=== PATIENT | male | born 1935 | race Caucasian/White ===

== ENCOUNTER 2017-03-09 11:55 | Inpatient (IN) | payer MEDICARE, BC ==
--- NOTE | 2017-03-09 13:20 | RAD ---
LEFT FOOT 3 VIEWS: Date: 03/09/17 HISTORY: Left foot pain. FINDINGS: There is abnormal gas density seen in the soft tissues adjacent to the first MTP joint and extending into the great toe. The soft tissue gas is noted along the dorsal surface on the lateral view. Ther e is abnormal mottled appearance to the distal phalanx of the great toe. There is also mild mottled appearance involving the proximal phalanx of the great toe and the first metatarsal. IMPRESSION: There is soft tissue swelling with gas density seen in the soft tissues surrounding the first MTP naveen int dorsally and extending into the great toe. Infection with gas-forming organism should be exclude d. Mottled osseous appearance could represent osteomyelitis, although no focal lytic or destructive process is seen. Consider MRI to further evaluate. Findings discussed with ordering physician. CODE CR. POS: JANEY
[2017-03-09 13:21] LABS: Hematocrit 38.4 % (42.0-52.0); Mean Platelet Volume 7.7 fL (7.4-10.4); Red Blood Cell (RBC) Count 5.04 mill/uL (4.70-6.10); White Blood Cell (WBC) Count 19.6 thou/uL (4.8-10.8)
--- NOTE | 2017-03-09 13:35 | ULT ---
LEFT LOWER EXTREMITY VENOUS DUPLEX STUDY: Technique: Deep veins of left lower extremity evaluated by ultrasound and doppler with color doppler , spectral analysis and compression. History: Pain and edema left foot with bleeding and eurythemia of the great toe. FINDINGS: Common femoral, profunda femoral, superficial femoral, popliteal, greater saphenous, and posterior t ibial veins evaluated. There is normal compression, augmentation and blood flow. No evidence of DVT. IMPRESSION: No evidence of left lower extremity DVT. POS: JANEY
[2017-03-09 13:38] LABS: Anisocytosis SLIGHT = 6-15 cells (100X) (0-5/hpf); Band 4 % (5-11); Hypochromia SLIGHT = 6-15 cells (100X) (0-5/hpf); Microcytosis SLIGHT = 6-15 cells (100X) (0-5/hpf); Neutrophil 87 % (42-75); Ovalocytes SLIGHT = 2-5 cells (100X) (0-1/hpf); Polychromasia SLIGHT = 2-3 cells (100X) (0-2/hpf); Target Cells SLIGHT = 2-5 cells (100X) (0-1/hpf)
[2017-03-09 13:42] LABS: ALT (SGPT) 14 U/L (8-55); AST (SGOT) 11 U/L (5-34); Alkaline Phosphatase 122 U/L (40-150); Anion Gap 16 mmol/L (10-20); BUN (Urea Nitrogen) 40 mg/dL (8.4-25.7); Bilirubin, Total 0.8 mg/dL (0.2-1.2); CK (CPK) 27 U/L (30-200); Calc. Creatinine Clearance 0 mL/min (70-130); Calcium 9.2 mg/dL (7.8-10.44); Carbon Dioxide 28 mmol/L (23-31); Chloride 94 mmol/L (98-107); Estimated GFR-MDRD 42; Globulin 3.9 g/dL (2.4-3.5); Protein, Total 7.4 g/dL (5.8-8.1)
[2017-03-09] MEDS ORDERED: Ondansetron HCl/PF 4 MG/2 ML Vial IVP PRN ×2 (14:41→20:09)
[2017-03-09] MEDS ORDERED: Ondansetron ODT 4 MG TAB PO PRN (14:41)
[2017-03-09] MEDS ORDERED: Acetaminophen 325 MG TAB PO PRN (14:42)
[2017-03-09] MEDS ORDERED: HYDROcodone/Acetaminophen 5/325 mg Tablet PO PRN ×2 (14:42)
[2017-03-09 14:51] VITALS: BMI 22.8
[2017-03-09] MEDS ORDERED: Insulin Regular 300 UNITS/3 ML VIAL SC PRN (17:58)
[2017-03-09] MEDS ORDERED: Dextrose 50% Abboject 50 ML SYRINGE SLOW IVP PRN (17:58)
[2017-03-09] MEDS ORDERED: Dextrose 5% in Water 1,000 ML IV PRN (17:58)
[2017-03-09] MEDS ORDERED: Insulin Regular 300 UNITS/3 ML VIAL ONE ×2 (18:55→18:57)
[2017-03-09] MEDS ORDERED: Bupivacaine PF 0.5% 30 ML VIAL ONE (18:58)
[2017-03-09] MEDS ORDERED: Propofol 500 MG/50 ML VIAL ONE (19:12)
[2017-03-09] MEDS ORDERED: Fentanyl 100 MCG/2 ML VIAL ONE (19:12)
[2017-03-09] MEDS ORDERED: Lidocaine 1% PF 5 ML VIAL ONE (19:32)
[2017-03-09] MEDS ORDERED: Propofol 200 MG/20 ML VIAL ONE (19:32)
[2017-03-09] MEDS ORDERED: HYDROmorphone 2 MG/ML VIAL SLOW IVP PRN (20:09)
[2017-03-09] MEDS ORDERED: Promethazine HCl 25 MG/ML VIAL IM PRN (20:09)
[2017-03-09] MEDS ORDERED: Promethazine HCl 25 MG/ML VIAL SLOW IVP PRN (20:09)
[2017-03-09] MEDS ORDERED: Non-Formulary Item 1 EACH (Insulin Glargine,Hum.Rec.Anlog 10 UNIT) SQ SCH (21:00)
[2017-03-09] MEDS: Piperacillin/Tazobactam 3.375 GM in Sodium Chloride 0.9% 100 ML IVPB SCH (21:39)
[2017-03-09] MEDS: Simvastatin 20 MG TAB PO SCH (21:40)
[2017-03-09] MEDS: Sotalol HCl 80 MG TAB PO SCH (21:41)
[2017-03-09] MEDS: Insulin Detemir 100 UNITS/ML 10 UNITS in Pre-Filled Syringe SC SCH (21:45)
[2017-03-09] MEDS: Sodium Chloride 0.9% 1,000 ML IV SCH (21:49)
[2017-03-09] MEDS: Albuterol Sulfate 1.25 MG/3 ML NEB NEB SCH (23:05)
[2017-03-10] MEDS ORDERED: Iopamidol 370 76% 50 ML VIAL FS ONE ×2 (00:54→16:52)
--- NOTE | 2017-03-10 00:55 | CON ---
DATE OF CONSULTATION: 03/09/2017 REASON FOR CONSULTATION: Gangrene and sepsis, left foot. HISTORY OF PRESENT ILLNESS: Mr. Lopez is a 81-year-old man who presented to his primary care doctor last week with left foot swelling. He has a previous history of an osteoporotic fracture on that side, but an x-ray was negative for fracture. He had a uric acid level that was mildly elevated, so he was started on some steroids with the thought that this could be a gouty foot; however, he was not better by the weekend, so he was started on colchicine. He called his primary care doctor this morning and stated that when he woke up, his left great toe was black in color and the top of his foot looked bruised, so he was told to come into the emergency room. In the emergency room, white count was elevated at 19,000 and a CRP was elevated at 8. He had an x-ray of the left foot, which revealed gas in the soft tissues around the first metatarsal as well as soft tissue swelling. The patient is having some pain in his foot, but this is not severe and he denies any fevers or chills at home. He denies any open wounds or injury or drainage from the foot. PAST MEDICAL HISTORY: Coronary artery disease, status post MN and PTCA and stenting; peripheral vascular disease, status post PTCA on the left leg several years ago by Dr. Jose Montenegro; oxygen dependent COPD with ongoing tobacco abuse ; hypertension; diabetes, non insulin-dependent; depression and intermittent atrial fibrillation. PAST SURGICAL HISTORY: PTCA and stenting of the coronary arteries and PTCA of the left superficial femoral artery, laparoscopic cholecystectomy and appendectomy. ALLERGIES: He has no known drug allergies. OUTPATIENT MEDICATIONS: Include Eliquis, which he has been taking, levocetirizine, Zoloft, albuterol and Symbicort inhalers, aspirin, Lasix, multivitamin, Lyrica, Forteo injection, Dosepak of prednisone, glargine insulin , Protonix, simvastatin, sotalol and glipizide. He did receive a dose of vancomycin in the emergency room and his primary care doctor has ordered Zosyn. REVIEW OF SYSTEMS: Ten-system review of systems is negative except per HPI. FAMILY HISTORY: Stroke, diabetes and lung cancer. PHYSICAL EXAMINATION: VITAL SIGNS: Patient is afebrile, heart rate in the 50s, respirations 16, 93% saturated on 2 liters of oxygen, blood pressure 136/67. GENERAL: Reveals an elderly man, in no acute distress with oxygen in place. He is not flushed or toxic in appearance. He is not jaundiced or icteric. HEENT: Unremarkable. NECK: Supple, without lymphadenopathy or thyroid nodules. HEART: Regular in its rate and rhythm. I do not appreciate any murmurs, rubs, or gallops. LUNGS: Mostly clear with occasional wheezes. ABDOMEN: Soft, nontender, nondistended, without any palpable masses or hernias. EXTREMITIES: His right foot is warm to the touch and has good cap refill, although I do not appreciate any pedal pulses. His left foot is moderately swollen to the ankle, has discoloration of the dorsum of the foot and a blister with some gas under the blister. His left great toe has a gangrenous appearance. There is not any arnulfo crepitance and no expressible drainage. He has no palpable pedal or popliteal pulses and he has dependent rubor when sitting at the bedside. NEUROLOGIC: Diminished sensation in both feet. PSYCHIATRIC: Alert, oriented, and appropriate. LABORATORY DATA: White count is elevated at 19.6, hematocrit 38.4, platelets 157. Sodium is slightly low at 134, BUN and creatinine are mildly elevated at 40 and 1.6, glucose is 382. C-reactive protein is 8.1. Plain films of the left foot are reviewed and I agree with the written report. A venous duplex was also performed and there was no evidence of DVT. ASSESSMENT AND PLAN: Gangrene and sepsis with possible gas forming organism on foot x-ray and rapidly progressive gangrenous changes of the left foot. The patient has been taking his Eliquis, but I do not believe that surgical intervention can be delayed. He has moderately increased risk of bleeding for this reason; however, he has evidence of severe peripheral vascular disease on physical examination. I do not expect bleeding to be a huge problem. He will have difficulty healing unless we can improve the blood flow and Vascular Surgery is going to see him tomorrow; however, there is nothing that they need to do urgently. I have recommended a left great toe amputation to try to control his infection. If the infection extends further up the foot then amputation of additional toes or even the entire foot may be necessary to halt the progression of the infection. He is at increased risk for bleeding as well as failure to heal and anesthetic risks due to his multiple comorbidities. He and his understand and accept these risks and wish to proceed. He has been posted emergently for the operating room. All their questions were answered. JANIYA
[2017-03-10] MEDS: Piperacillin/Tazobactam 3.375 GM in Sodium Chloride 0.9% 100 ML IVPB SCH ×4 (01:41→20:09)
[2017-03-10] MEDS: Sodium Chloride 0.9% 1,000 ML IV SCH ×4 (03:13→20:13)
[2017-03-10 05:03] LABS: #Lymphocytes 1.6 thou/uL (1.20-3.40); #Monocytes 0.8 thou/uL (0.11-0.59); %Eosinophils 0.3 % (0.0-10.0); %Monocytes 6.3 % (0.0-10.0); Hematocrit 34.8 % (42.0-52.0); Mean Platelet Volume 11.9 fL (7.4-10.4); Red Blood Cell (RBC) Count 4.53 mill/uL (4.70-6.10); White Blood Cell (WBC) Count 12.4 thou/uL (4.8-10.8)
[2017-03-10 05:21] LABS: Anion Gap 11 mmol/L (10-20); BUN (Urea Nitrogen) 33 mg/dL (8.4-25.7); Calc. Creatinine Clearance 49 mL/min (70-130); Calcium 8.4 mg/dL (7.8-10.44); Carbon Dioxide 29 mmol/L (23-31); Chloride 98 mmol/L (98-107); Estimated GFR-MDRD 60
[2017-03-10] MEDS: Albuterol Sulfate 1.25 MG/3 ML NEB NEB SCH ×3 (06:17→22:27)
--- NOTE | 2017-03-10 06:54 | CON ---
DATE OF CONSULTATION: 03/10/2017 HISTORY OF PRESENT ILLNESS: Mr. Lopez is a 81-year-old gentleman who is status post FLAVORER and stent ing of his left superficial femoral artery for a chronic total occlusion 3 years ago. He is back in the hospital today with left first and second toe gangrene, which has been amputated by Dr. Magaña . I have been asked to see him to further evaluate his peripheral vascular status. He has had no c laudication at home. He has not had any fevers or chills at home. He has had no previous ulceratio ns or rest pain. PAST MEDICAL HISTORY: 1. Coronary artery disease. 2. Peripheral vascular disease. 3. Oxygen dependent chronic obstructive pulmonary disease with ongoing tobacco use. 4. Hypertension. 5. Diabetes. 6. Depression. 7. Paroxysmal atrial fibrillation. PAST SURGICAL HISTORY: 1. Appendectomy. 2. Laparoscopic cholecystectomy. 3. SFA intervention on the left - the SFA was angioplastied with a 4 x 150 balloon followed by a 6 x 100 stent. ALLERGIES: None. MEDICATIONS AT HOME 1. Eliquis. 2. Zoloft. 3. Albuterol and Symbicort inhalers. 4. Aspirin. 5. Lasix. 6. Lyrica. 7. Forteo. 8. Prednisone Dosepak. 9. Insulin. 10. Protonix. 11. Simvastatin. 12. Sotalol. 12. Glipizide. REVIEW OF SYSTEMS: Ten point review of systems performed and is negative except as above. PHYSICAL EXAMINATION: GENERAL: This is an elderly, thin gentleman resting comfortably in bed. VITAL SIGNS: Temperature is 98.1, pulse is 60 and regular, blood pressure 109/64, height is 5 feet 8 inches, weight 150 pounds, BSA is 1.81. HEENT: Sclerae nonicteric. Pupils equal, round bilaterally. NECK: Supple. He has no carotid bruits. LUNGS: Chest is clear bilaterally. HEART: Rhythm is regular. ABDOMEN: Soft, nontender. Scaphoid. There are no masses. EXTREMITIES: Femoral pulses are palpable bilaterally. He has Doppler signals only in dorsalis pedi s bilaterally. He is status post amputation and his left foot is completely wrapped. LABORATORY DATA: White blood cell count is 12.4, hemoglobin is 10.2, creatinine is 1.1. ASSESSMENT AND PLAN: A 81-year-old diabetic gentleman who continues to use tobacco who is status po st intervention of his left superficial femoral artery. He has lost toes due to gangrene and needs a reevaluation with angiography today. The risks have been outlined. The patient is agreeable.
[2017-03-10] MEDS: glipiZIDE 5 MG TAB PO SCH ×2 (07:09→17:44)
[2017-03-10] MEDS: Enoxaparin Sodium 40 MG/0.4 ML SYRINGE SC SCH (07:10)
--- NOTE | 2017-03-10 08:39 | HP ---
DATE OF ADMISSION: 03/09/2017 HISTORY OF PRESENT ILLNESS: The patient is a 81-year-old white male who has a known history of COPD , peripheral vascular disease, type 2 diabetes mellitus [id number], history of atheroscl erotic coronary artery disease and atrial fibrillation. He presented to the the emergency room comp laining of blackness to his left great toe and pain in his left foot. He noticed the symptoms began approximately 5 days ago. He was seen in my office at that time complaining of left ankle swelling . He has a prevous history of fracture to his left ankle and osteoporosis. An ankle x-ray was done which showed no fracture. foot lesion at that time. was 11.7. It was elected to treat him with prednisone. He continues to have swelling and pain. He notified my office again on . He was switched to colchicine for possible gout. Today he notified my office and was told to go to the emergency room for further evaluation and treatment. He has not noted any fever. No injuri es have been noted. He does have a past history of peripheral vascular disease. He has undergone a stenting procedure to his left lower done by Dr. Jose Montenegro. He denies any chest pain. He has chronic shortness of breath with his COPD. He continues to smoke. . ALLERGIES: He has no known allergies. CURRENT MEDICATIONS: Noted in the chart. PAST MEDICAL HISTORY: Positive for hypertension, atherosclerotic coronary artery disease, type 2 di abetes mellitus [id number], COPD, atrial fibrillation, previous history of prostate cance r, and radiation therapy. PAST SURGICAL HISTORY: Positive for multiple orthopedic surgeries. He has undergone previous coron ryland artery stent as well as peripheral vascular stent. SOCIAL AND PERSONAL HISTORY: He is retired. He does smoke. He has smoked his entire adult life. REVIEW OF SYSTEMS: Gastrointestinal: Negative. Genitourinary: Negative. Cardiovascular: Negati ve. : Negative. Musculoskeletal: Positive as above. FAMILY HISTORY: Noncontributory at this time. PHYSICAL EXAMINATION: VITAL SIGNS: Blood pressure 141/84, pulse 88, respirations 16, O2 sats 92% on 2 liters. GENERAL: He is alert. He does not appear in any significant distress. HEENT: Normocephalic, atraumatic. Sclerae and conjunctivae are clear. NECK: Supple, full range of motion, no masses. HEART: Reveals a regular rate and rhythm without murmurs, gallops, or rubs. LUNGS: Bilateral breath sounds, mild inspiratory wheezes otherwise noted. ABDOMEN: Soft, nontender, bowel sounds are active. No hepatosplenomegaly is noted. EXTREMITIES: The left great toe is obviously gangrenous down to the whole aspect of the toe a t the metarsophalangeal joint. There are areas of discoloration blackness to the dorsal aspec t of the foot. There is poor capillary filling. No pulses are palpable in dorsalis pedis. The low er extremity does not reveal any other lesions to the lower leg. Popliteal pulses could not be norma ured. The right lower extremity actually show good capillary filling. Pulses are ____ palpable on both dorsalis pedis and the posterior tibial. NEUROLOGIC: Alert and oriented x3. IMPRESSION/PLAN: 1. This is a 81-year-old male with gangrenous left toe consistent with possible infection. With th e infectious etiology and peripheral vascular disease, I have consulted Dr. Magaña and she has agre ed to see the patient. It appears she will take the patient to surgery for amputation of the toe. I have consulted Dr. Davis for further antibiotic recommendations. We will get those recommendation s. He has already had one dose of vancomycin, started him on Zosyn 3.75 mg IV q. 6 hours. 2. I discussed the findings with the patient and his . They verbalized understanding of the pr ocess and what needs to be accomplished. 2. We will contact Dr. Jose Montenegro and target a recommendation regarding revascularization of his left lower extremity.
[2017-03-10] MEDS: Morphine Sulfate 2 MG/ML SYRINGE IVP PRN ×3 (08:52→20:10)
[2017-03-10] MEDS: Sotalol HCl 80 MG TAB PO SCH ×2 (09:04→20:09)
--- NOTE | 2017-03-10 09:26 | PRG ---
DATE OF SERVICE: 03/10/2017 Mr. Lopez is doing okay today. Dr. Montenegro has been around to see him and is going to do an angio l ater today. His wound is clean. There is no necrotic tissue in the base of the wound where the inf ected tissue was. He does have some skin of questionable viability along the lateral edge of the wo und, but no odor and no expressible drainage from any part of the wound. This was redressed with we t to dry dressings by Wound Care. Cultures are still pending, but Gram stain showed many gram posit raj cocci in pairs and clusters and a few gram negative rods from the past in his foot. His white c ount has come down from 19,000 to 12,000. BUN and creatinine are down to 33 and 1.18. ASSESSMENT: Deep infection of the left foot, status post amputation of first and second toes and de bridement of necrotic skin from the dorsum of the foot. He has severe peripheral vascular disease a nd will likely not be able to heal this wound without better inflow. He is getting an angio today, so hopefully this can be improved. Ultimately, he will require a VAC dressing and skin grafting. H e may require further debridement of skin and subcutaneous fat tomorrow. I will see him again with the Wound Care Team tomorrow.
[2017-03-10] MEDS ORDERED: Heparin 10,000 UNITS/1 ML VIAL ONE (10:30)
[2017-03-10] MEDS ORDERED: Fentanyl 100 MCG/2 ML VIAL ONE (10:30)
--- NOTE | 2017-03-10 12:31 | OP ---
DATE OF PROCEDURE: 03/10/2017 PREOPERATIVE DIAGNOSIS: Peripheral vascular disease with left foot gangrene. POSTOPERATIVE DIAGNOSIS: Peripheral vascular disease with left foot gangrene. SURGEON: Dr. Jose Montenegro PROCEDURES: 1. Abdominal aortogram. 2. Left external iliac artery angiogram. 3. Left common femoral artery angiogram. 4. Left proximal superficial femoral artery angiogram. 5. Left distal superficial femoral artery angiogram. 6. Left popliteal artery angiogram. 7. Left peroneal artery angiogram. 8. Left distal peroneal artery angiogram. 9. Left peroneal artery COMM[employer]ATION MANAGER with a 3 x 100 Pomfret balloon taken to 80 mmHg for 2 minutes on 2 sepa rate occasions. 10. Left superficial femoral/popliteal artery COMM[employer]ICATIONS STATION MANAGER for the full length with a 5 mm Lutonix -- this w as 3 separate balloons of 5 x 150, 5 x 150, 5 x 100 taken 6 mmHg for 3 minutes at each inflation. TOTAL CONTRAST: 82 mL. FLUORO TIME 10.4 minutes. PROCEDURE IN DETAIL: After consent was obtained, the patient was brought to the [facility], placed in supine position on the lab support service tech table. Appropriate monitoring was placed. The patient was given 7 5 mcg total of fentanyl. Using ultrasound guidance, the right groin was anesthetized with 1% lidoca ine over the common femoral artery. Using ultrasound guidance, the right common femoral artery was accessed and Bentson guidewire placed. A 5-Uzbek sheath was placed. Bentson guidewires placed in the upper abdominal aorta followed by contra catheter in the upper abdominal aorta. Hand injected a ortogram x2 was performed illuminating the aorta and proximal iliac arteries which had heavy calcifi cation, but no luminal encroachment. The contra catheter was guided over the aortic bifurcation int o the left external iliac artery. Hand injected arteriogram was performed illuminating the external iliac and common femoral arteries. Again, there was heavy calcification, but no intraluminal encro achment of significance. A Magic Torque guidewire was guided into the superficial femoral artery. A 5-Uzbek destination sheath was placed with its tip in the common femoral artery. Hand injected a rteriogram was performed in a stepwise fashion using digital subtraction angiography to illuminate t he superficial femoral, popliteal, and tibial arteries. Superficial femoral artery was heavily dise ased throughout its length. There was critical stenosis proximally. The stent was patent, but had stenosis throughout it. Popliteal artery was patent, but had stenoses throughout it. There was a c ritical stenosis in the proximal peroneal artery. Posterior tibial and anterior tibial arteries wer e occluded. The peroneal artery fed the foot. The patient was given 5000 units of heparin followed by 2500 units of heparin with an ACT of over 200. The tip of the sheath was then passed down into the superficial femoral artery distal to the proximal stenosis in the superficial femoral artery. M agic Torque guidewire was guided down into the peroneal artery. Hand injected arteriogram was perfo rmed through an angled glide catheter confirming intraluminal location. A 3 x 100 Pomfret balloon was selected for the proximal peroneal stenosis. This was inflated and he ld for 2 minutes. Hand injected arteriogram with the tip of the catheter in the popliteal artery sh owed an excellent result. We selected a 5 mm Lutonix system to angioplasty the full length of the s uperficial femoral and popliteal artery. We started just below the knee, angioplasties were held fo r 3 minutes with a Lutonix ballooned with a 150 mm balloon, a 150 mm balloon and a 100 mm balloon be ing used for the full length. Followup angiogram shows slow flow down into the distal superficial f emoral artery. Angled glide catheter was placed over the Magic Torque guidewire the Magic Torque gu idewire was removed. Hand injected arteriogram with the tip of the catheter in the peroneal showed excellent result from the angioplasty in the peroneal. An 0.014 guidewire was then placed. Hand in jection arteriograms sequentially pulling back showed a good result and slow flow being from probabl e spasm around the Magic Torque guidewire. The external iliac artery was again evaluated with an an gled view. There was no evidence of significant stenosis. The sheath was backed over the aortic bi furcation into the right iliac system. A Bentsen guidewire was placed. Sheath was removed and manu al pressure held. ProGlide was then placed, deployed and seated nicely for hemostasis. The patient tolerated the procedure well, and was transferred to the recovery area in stable condition.
--- NOTE | 2017-03-10 13:48 | PRG ---
DATE OF SERVICE: 03/10/2017 Mr. Lopez is doing well. He is status post amputation of his toe. He is pending to undergo arter iograms today for further treatment and evaluation of peripheral vascular disease. PHYSICAL EXAMINATION: VITAL SIGNS: Temperature 98.1, BP 150/76. LUNGS: Reveal bilateral breath sounds. HEART: Reveals no murmur. LABORATORY: Hemoglobin 10.2, hematocrit 34.8, white blood count 12.4. Sodium 134, potassium 3.6, c hloride 98, CO2 29, creatinine 1.18. IMPRESSION: 1. Status post amputation of gangrenous left toe. 2. Peripheral vascular disease. 3. Type 2 diabetes mellitus, non-insulin dependent. 4. Atrial fibrillation. 5. Chronic obstructive pulmonary disease. PLAN: Continue current treatment at this time, await results of arteriograms and further procedures to improve blood flow to his leg.
--- NOTE | 2017-03-10 15:37 | CON ---
DATE OF CONSULTATION: 03/10/2017 REASON FOR CONSULTATION: Left foot inflammatory and ischemic changes. HISTORY OF PRESENT ILLNESS: A 81-year-old patient with a history of hypertension and peripheral vas cular disease, type 2 diabetes mellitus, COPD, and still actively smoking, who has developed pain in the left foot and subsequently saw his personal doctor, Dr. Clarence Montenegro. The initial considerati on with the possibility of an inflammatory arthropathy, but then the patient developed overt areas o f ischemia in forefoot region as described below. This led to the admission. The patient currently is awake. He has O2 per nasal cannula. He denies headaches, no change in vis ual symptoms, sore throat, odynophagia, dysphagia, little bit of cough, mild dyspnea at rest. No ch est pain, no abdominal pain, no diarrhea, no genitourinary symptoms, no joint symptoms outside the a amber of involvement. PAST MEDICAL HISTORY: Hypertension, peripheral vascular disease, coronary artery disease, diabetes type 2, COPD, atrial fibrillation, prostate cancer managed with radiation therapy. PAST SURGICAL HISTORY: The patient has had revascularization of the left lower extremity with I bel ieve angioplasty. He also has had coronary angiograms and stenting procedures. PAST SURGICAL HISTORY: Includes also cholecystectomy and appendectomy. He also had a previous epis ode of pneumothorax, left side. SOCIAL HISTORY: Current active cigarette use. . ALLERGIES: None. CURRENT MEDICATION LIST: Include Glucotrol, Dilaudid, insulin, and Zosyn. PHYSICAL EXAMINATION: VITAL SIGNS: T-max of 98.5, blood pressure 150/76, pulse 61, respirations 18, and O2 sat 95% on 2 l iters nasal cannula. SKIN: Shows the area of necrosis of the left first toe extending to the dorsal aspect of the mid fo ot region with an area of blistering. There is some erythema associated with this lesion, but it is basically faint and localized right at the base of the digits. There is an unroofed blister in the medial dorsal aspect of the right proximal phalanx skin site as well. No lymphadenopathy. HEENT: Ocular movements are conjugate. Oral cavity with no remarkable findings. NECK: Supple, no jugular venous distention. LUNGS: With increased AP diameter, diminished breath sounds, no wheezing, no crackles. HEART: S1, S2 with irregular rate. ABDOMEN: Soft. Not distended. No bladder distention, no ascites, no organomegaly. I could not fe el any popliteal pulses or dorsalis pedis on either side. The cap refill was delayed in both sides. He is able to move extremities with limitations, but no focal weakness noted. NEUROLOGIC: He is awake, follows commands, oriented. LABORATORY DATA: White cell count 19.6, hemoglobin 11, platelets 157 with 87% neutrophils. Creatin ine 1.6 with a baseline of 1.02, repeat creatinine today is 1.18. CRP was 8.1. Liver profile barbara l. Microbiology studies, we have group B strep from fluid culture. Two sets of blood cultures thus far negative. ASSESSMENT: 1. Diabetes type 2 with peripheral vascular disease and recent previous revascularization of left l ower extremity. 2. Ischemic changes of the left foot with possible associated infectious process as well. DISCUSSION: The most likely scenario is thrombotic occlusion of the vascular supply to the left edgard t probably the tibial artery and superimposed inflammatory process. The patient is currently on bro ad spectrum coverage and will undergo vascular study soon to assess and correct the abnormality if p ossible. Eventual amputation will be required as well.
[2017-03-10] MEDS: Insulin Detemir 100 UNITS/ML 10 UNITS in Pre-Filled Syringe SC SCH (20:09)
[2017-03-10] MEDS: Simvastatin 20 MG TAB PO SCH (20:10)
[2017-03-11] MEDS: Morphine Sulfate 2 MG/ML SYRINGE IVP PRN ×5 (00:33→16:43)
[2017-03-11] MEDS: Piperacillin/Tazobactam 3.375 GM in Sodium Chloride 0.9% 100 ML IVPB SCH ×4 (02:20→19:58)
[2017-03-11 06:45] LABS: Anion Gap 14 mmol/L (10-20); BUN (Urea Nitrogen) 24 mg/dL (8.4-25.7); Calc. Creatinine Clearance 55 mL/min (70-130); Calcium 7.9 mg/dL (7.8-10.44); Carbon Dioxide 25 mmol/L (23-31); Chloride 105 mmol/L (98-107); Estimated GFR-MDRD 68
[2017-03-11] MEDS: Albuterol Sulfate 1.25 MG/3 ML NEB NEB SCH ×3 (06:48→22:22)
[2017-03-11 07:20] LABS: Hematocrit 34.8 % (42.0-52.0); Mean Platelet Volume 11.7 fL (7.4-10.4); White Blood Cell (WBC) Count 15.9 thou/uL (4.8-10.8)
[2017-03-11] MEDS ORDERED: Dextrose 5% in Water 1,000 ML IV PRN (07:42)
[2017-03-11] MEDS ORDERED: Dextrose 50% Abboject 50 ML SYRINGE SLOW IVP PRN (07:42)
--- NOTE | 2017-03-11 07:59 | PRG ---
DATE OF SERVICE: 03/11/2017 SUBJECTIVE: Mr. Lopez is resting well. He is alert and complaining of some left foot pain. PHYSICAL EXAMINATION: VITAL SIGNS: Temperature 98.6, BP 114/66, O2 sats 94% on 3 liters. GENERAL: He is alert, active, still somewhat drowsy. LUNGS: Clear. HEART: Reveals no murmur. EXTREMITIES: Left foot between the bandages I am able to feel warmth to his left foot. I did not r emove the bandage to check his wound today. LABORATORY: Hemoglobin 10.1, hematocrit 34.8, white blood count 15.9, creatinine is 1.05, his gluco ses are well controlled, matter of fact, somewhat to low. IMPRESSION: 1. Peripheral vascular disease. 2. Gangrene of left great toe, status post amputation. 3. Type 2 diabetes mellitus, insulin controlled. 4. Chronic obstructive pulmonary disease. 5. Atherosclerotic coronary artery disease. PLAN: The patient is doing well. He is on correct antibiotics due to wound cultures, strep agalact ia which reveals no evidence of any penicillin resistance. Further recommendations will be made by Surgery once it is known how current wounds will heal.
[2017-03-11] MEDS: Clopidogrel Bisulfate 75 MG TAB PO SCH (08:20)
[2017-03-11] MEDS: Aspirin 81 mg Enteric Coated Tablet PO SCH (08:20)
[2017-03-11] MEDS: Sotalol HCl 80 MG TAB PO SCH ×2 (08:21→19:59)
[2017-03-11] MEDS: Enoxaparin Sodium 40 MG/0.4 ML SYRINGE SC SCH (08:21)
[2017-03-11] MEDS: glipiZIDE 5 MG TAB PO SCH (08:23)
[2017-03-11] MEDS: Sodium Chloride 0.9% 1,000 ML IV SCH (08:35)
[2017-03-11 08:58] LABS: Band 6 % (5-11); Neutrophil 76 % (42-75)
--- NOTE | 2017-03-11 13:11 | PQF ---
DATE: 03/11/17 ATTN: Dr. Clarence Montenegro 03/15/17 Please exercise your independent, professional judgment in responding to the clarification form. Clinical indicators are provided on the bottom of this form for your review Please check appropriate box(s): [ ] Acute On Chronic Respiratory Failure: [ ] with Hypoxia [ ] with Hypercapnia [ ] Acute Respiratory Failure due to: (etiology) [ ] Chronic Respiratory Failure only [ ] with Hypoxia [ ] with Hypercapnia [ ] Other diagnosis [ ] Unable to determine For continuity of documentation, please document condition throughout progress notes and discharge summary. Thank You. The following CLINICAL INDICATORS - SIGNS / SYMPTOMS are present in the medical record: ER NURSING VS: O2 SAT RA 88 O2 SAT 93-95 2L OXYGEN PN 03/11: O2 SATS 94% ON 3 LITERS RISKS: GS CONSULT: OXYGEN DEPENDENT COPD WITH ONGOING TOBACCO ABUSE. ASSESS. GANGRENE AND SEPSIS. TREATMENT: CPOE 03/09: RESP: O2 TO KEEP SATS 88% CPOE 03/09: ALBUTEROL NEB Q8 HR (This form is maintained as a part of the permanent medical record) 2014 [employer] All Rights Reserved Corina Melgar RN, BSN [email or web address] Office: [phone] [facility]
--- NOTE | 2017-03-11 13:54 | PRG ---
DATE OF SERVICE: 03/11/2017 SUBJECTIVE: Mr. Lopez is feeling okay today. His foot is hurting and is a little bit swollen. He has been hemodynamically stable. His white count is still slightly elevated at 15 and hematocrit is stable at 34.8. Cultures are growing group B strep. The gram-negative anjana seen on Gram stain has not yet grown on culture. He underwent angiogram with angioplasty of the left peroneal artery and the left superficial femoral and popliteal artery yesterday by Dr. Montenegro. His wound is clean. There is some old blood on the gauze, but no active bleeding except for some slow ooze from the marrow. He has some skin laterally and superomedially, which was trimmed back sharply at the bedside. There is still some questionably viable skin at those locations, which was left in place. There was no odor or drainage from the wounds and no tissue in the deep aspect of the wound. A VAC dressing was placed by the Wound Care team. The foot is warmer and has improved capillary refill, although I still cannot feel the pulse in the feet. Sensation seems to be improved. ASSESSMENT AND PLAN: Gangrene of the left foot, status post debridement of skin and subcutaneous tissues on the dorsum of the foot and first and second toe amputation. Strep B on culture, which is still preliminary, it is adequately covered by current antibiotics. Physical therapy has been ordered. If there is not any bleeding with the VAC, it is okay to restart his Eliquis. Dr. Jones is vector control assistant this weekend. I will ask him to see Mr. Lopez on an as needed basis. Please call if there are any questions or problems. Otherwise , I will see him with the Wound Care team on Tuesday when he his VAC changed. JANIYA
[2017-03-11] MEDS: HYDROcodone/Acetaminophen 5/325 mg Tablet PO PRN ×2 (14:19→18:20)
--- NOTE | 2017-03-11 14:53 | PDOC.OP ---
Operative Note - Operative Note Operative Note: PROCEDURE: Left first and second toe amputation and debridement of left foot DATE OF PROCEDURE: 03/09/2017 SURGEON: Jean Pierre Magaña M.D. PREOPERATIVE DIAGNOSES: Gangrene of the left foot with infection POSTOPERATIVE DIAGNOSIS: Gangrene of the left foot with infection HISTORY: Patient is a 81-year-old man with peripheral vascular disease and multiple comorbidities who presented to his primary care doctor last week with swelling of the foot. This morning when he woke up his left first toe was black and he was told to come into the emergency room. Plain films of the foot revealed gas in the soft tissue surrounding the metatarsal head and his white count and C-reactive protein were elevated so recommendation was made to proceed to the operating room for amputation of the frankly gangrenous first toe and debridement of all infected necrotic tissue. PROCEDURE IN DETAIL: After informed consent was obtained and appropriate preoperative antibiotics were continued, the patient was taken to the operating room he was placed in the supine position and monitored anesthesia care was administered. An ankle block was performed and adequacy of block confirmed. He was prepped and draped in standard sterile fashion and a paddle-shaped incision made overlying the first toe. Dissection was carried down into the space between the first and second toe and a foul-smelling abscess encountered. Pus was sent for Gram stain and culture. The tissues at this level were frankly necrotic and encompassing the second toe so the incision was extended to include the second toe. The tissues lateral to the second toe were viable. Both toes were amputated through the metatarsophalangeal joints. The tissues around the shaft of the first metatarsal bone were then exposed and the bone transected using a rib shear. The bone at this level appeared healthy. The end of the second metatarsal head was rongeured back to healthy-appearing bone. There was some additional necrotic tissue underlying the second metatarsal head which was dissected back to healthy-appearing tissue. The remainder of the deep tissues of the foot appeared viable and noninfected. The dorsum of the foot was frankly gangrenous and the skin was valencia and had no blood flow so the nonviable skin was resected back until blood flow was encountered. The underlying tissues were edematous but did not appear to be infected and the deep space of the foot did not appear to be involved. The wound was copiously irrigated and examined for hemostasis. This was obtained using Bovie electrocautery. The wound was then packed with saline moistened gauze and fluffs dressings placed and secured with a Kerlix. An Dio wrap was then placed and the patient was taken to the recovery room in good condition. Estimated blood loss was minimal. There were no complications. Specimen is left first and second toe with pus sent for Gram stain and culture.
[2017-03-11] MEDS: Insulin Detemir 100 UNITS/ML 10 UNITS in Pre-Filled Syringe SC SCH (19:59)
[2017-03-11] MEDS: Simvastatin 20 MG TAB PO SCH (20:00)
[2017-03-12] MEDS: Sodium Chloride 0.9% 1,000 ML IV SCH ×4 (00:22→14:57)
[2017-03-12] MEDS: Piperacillin/Tazobactam 3.375 GM in Sodium Chloride 0.9% 100 ML IVPB SCH ×4 (02:38→19:47)
[2017-03-12] MEDS: Morphine Sulfate 2 MG/ML SYRINGE IVP PRN ×4 (03:39→18:38)
[2017-03-12] MEDS: HYDROcodone/Acetaminophen 5/325 mg Tablet PO PRN ×3 (04:48→15:10)
[2017-03-12] MEDS: Albuterol Sulfate 1.25 MG/3 ML NEB NEB SCH ×3 (06:21→22:48)
[2017-03-12] MEDS: Sotalol HCl 80 MG TAB PO SCH ×2 (08:54→19:48)
[2017-03-12] MEDS: Enoxaparin Sodium 40 MG/0.4 ML SYRINGE SC SCH (11:56)
[2017-03-12] MEDS: Clopidogrel Bisulfate 75 MG TAB PO SCH (11:56)
[2017-03-12] MEDS: Aspirin 81 mg Enteric Coated Tablet PO SCH (11:56)
[2017-03-12] MEDS: Simvastatin 20 MG TAB PO SCH (19:49)
[2017-03-12] MEDS: Insulin Detemir 100 UNITS/ML 10 UNITS in Pre-Filled Syringe SC SCH (19:49)
[2017-03-13] MEDS: Piperacillin/Tazobactam 3.375 GM in Sodium Chloride 0.9% 100 ML IVPB SCH ×4 (01:47→20:23)
[2017-03-13] MEDS: Sodium Chloride 0.9% 1,000 ML IV SCH ×2 (01:49→13:03)
[2017-03-13] MEDS: HYDROcodone/Acetaminophen 5/325 mg Tablet PO PRN ×3 (01:50→20:24)
[2017-03-13 05:29] LABS: #Eosinphils 0.3 thou/uL (0.0-0.7); #Lymphocytes 1.5 thou/uL (1.20-3.40); #Monocytes 1.1 thou/uL (0.11-0.59); #Neutrophils 13.6 thou/uL (1.40-6.50); %Basophils 0.1 % (0.0-1.0); %Eosinophils 1.6 % (0.0-10.0); %Lymphocytes 8.8 % (21.0-51.0); %Monocytes 6.5 % (0.0-10.0); Hematocrit 34.2 % (42.0-52.0); Mean Platelet Volume 10.6 fL (7.4-10.4); Red Blood Cell (RBC) Count 4.38 mill/uL (4.70-6.10); White Blood Cell (WBC) Count 16.4 thou/uL (4.8-10.8)
[2017-03-13 05:32] LABS: Anion Gap 12 mmol/L (10-20); BUN (Urea Nitrogen) 19 mg/dL (8.4-25.7); Calc. Creatinine Clearance 62 mL/min (70-130); Calcium 8.2 mg/dL (7.8-10.44); Carbon Dioxide 24 mmol/L (23-31); Chloride 111 mmol/L (98-107); Estimated GFR-MDRD 78
[2017-03-13] MEDS: Albuterol Sulfate 1.25 MG/3 ML NEB NEB SCH ×3 (06:36→22:24)
[2017-03-13] MEDS: Sotalol HCl 80 MG TAB PO SCH ×2 (08:21→20:24)
[2017-03-13] MEDS: Clopidogrel Bisulfate 75 MG TAB PO SCH (08:22)
[2017-03-13] MEDS: Enoxaparin Sodium 40 MG/0.4 ML SYRINGE SC SCH (08:28)
[2017-03-13] MEDS: Aspirin 81 mg Enteric Coated Tablet PO SCH (08:28)
[2017-03-13] MEDS ORDERED: Isosorbide Mononitrate 20 MG TAB PO SCH (11:45)
[2017-03-13] MEDS: Mag-Al 1200 mg/1200 mg/30 ML UDCUP PO PRN (13:10)
[2017-03-13] MEDS: Simvastatin 20 MG TAB PO SCH (20:24)
[2017-03-13] MEDS: Insulin Detemir 100 UNITS/ML 10 UNITS in Pre-Filled Syringe SC SCH (20:25)
[2017-03-14] MEDS: Sodium Chloride 0.9% 1,000 ML IV SCH ×2 (01:46→07:36)
[2017-03-14] MEDS: Piperacillin/Tazobactam 3.375 GM in Sodium Chloride 0.9% 100 ML IVPB SCH ×4 (01:46→20:30)
[2017-03-14] MEDS: Albuterol Sulfate 1.25 MG/3 ML NEB NEB SCH ×3 (06:16→23:15)
[2017-03-14] MEDS: Sotalol HCl 80 MG TAB PO SCH ×2 (07:33→20:22)
[2017-03-14] MEDS: Aspirin 81 mg Enteric Coated Tablet PO SCH (07:33)
[2017-03-14] MEDS: Clopidogrel Bisulfate 75 MG TAB PO SCH (07:34)
[2017-03-14] MEDS: Enoxaparin Sodium 40 MG/0.4 ML SYRINGE SC SCH (07:34)
[2017-03-14] MEDS ORDERED: Isosorbide Mononitrate 20 MG TAB PO SCH (09:00)
[2017-03-14] MEDS: Mag-Al 1200 mg/1200 mg/30 ML UDCUP PO PRN (11:14)
[2017-03-14] MEDS: HYDROcodone/Acetaminophen 5/325 mg Tablet PO PRN (12:43)
--- NOTE | 2017-03-14 13:23 | PRG ---
DATE OF SERVICE: 03/14/2017 Mr. Lopez seemed to be doing well. He complains still of some left foot pain. His wound was undr essed in my presence. The wound appears to be with good blood flow. It is an open wound with the f irst and second toe amputated. PHYSICAL EXAMINATION: VITAL SIGNS: Temperature 97.2, BP 176/31. LABORATORY: Blood glucoses are under good control. LUNGS: Clear. HEART: Reveals no murmur. IMPRESSION: 1. Cellulitis, gangrene of the left foot. 2. Peripheral vascular disease. 3. It has been noted he is having recurrent belching. PLAN: 1. Will increase his Protonix to b.i.d.. 2. See about increasing Lyrica for better pain control. 3. Continue current medications.
--- NOTE | 2017-03-14 18:35 | PRG ---
DATE OF SERVICE: 03/14/2017 SUBJECTIVE: Mr. Lopez had revascularization and partial amputation of left foot with area of debr idement in the dorsal aspect. He has no headaches, mild shortness of breath, no chest pain. Mild e pigastric and right upper quadrant abdominal tenderness intermittently. Voiding without difficulty. OBJECTIVE: VITAL SIGNS: T-max 97.5, pulse 63, respirations 16, O2 sat 95% and BP 194/100. GENERAL: Awake. Does not appear in distress. O2 supplementation. HEENT: Ocular movements are conjugate. LUNGS: With symmetric air entry. HEART: S1 and S2 with regular rate. ABDOMEN: Soft and distended. Mild tenderness in the epigastric area. EXTREMITIES: The left foot with an area of exposed tendon. The amputation at the first ray is some what dusky red discoloration of the dorsal aspect of the left foot . LABORATORY DATA: White cell count 16.4, hemoglobin 9.8, platelets 222 with 82% neutrophils. Creati nine 0.93 and sodium 143. Microbiology with group B strep and Peptostreptococcus. ASSESSMENT AND PLAN: Type 2 diabetes, peripheral vascular disease and ischemic changes in the left foot with gangrene status post partial amputation. Still with neutrophilia and I am afraid that he is going to end up with a left below-knee amputation. Continue Zosyn. Symptoms in the right upper quadrant ultrasound of that area. Continue Zosyn for the time being.
[2017-03-14] MEDS: Insulin Detemir 100 UNITS/ML 10 UNITS in Pre-Filled Syringe SC SCH (20:23)
[2017-03-14] MEDS: cloNIDine HCl 0.1 MG TAB PO PRN (20:23)
[2017-03-14] MEDS: Simvastatin 20 MG TAB PO SCH (20:23)
[2017-03-15] MEDS: Sodium Chloride 0.9% 1,000 ML IV SCH ×4 (02:02→23:33)
[2017-03-15] MEDS: Piperacillin/Tazobactam 3.375 GM in Sodium Chloride 0.9% 100 ML IVPB SCH ×4 (02:02→20:17)
[2017-03-15] MEDS: HYDROcodone/Acetaminophen 5/325 mg Tablet PO PRN ×3 (02:45→20:18)
[2017-03-15] MEDS: Albuterol Sulfate 1.25 MG/3 ML NEB NEB SCH ×2 (06:13→14:12)
--- NOTE | 2017-03-15 07:55 | PRG ---
DATE OF SERVICE: 03/15/2017 Mr. Lopez is somewhat drowsy, but easily arouse. He is still complaining of some pain and belchin g. PHYSICAL EXAMINATION: VITAL SIGNS: Temperature 97.4, BP 176/78, O2 sat 93% on 3 liters. LUNGS: Reveal bilateral breath sounds. HEART: Reveals no murmur. ABDOMEN: Soft. There is some mild right upper quadrant pain. There is no evidence of rebound or g uarding. LABORATORY: Blood sugars were well controlled. Wound cultures are growing Streptococcus agalactia as well as Peptostreptococcus. He is currently on Zosyn at this time. IMPRESSION: 1. Status post amputation of left first and second toe with gangrene to the foot. 2. Type 2 diabetes mellitus, insulin-dependent. 3. Peripheral vascular disease, status post angioplasty. 4. Cellulitis of the foot. PLAN: The patient is still doing well. Hopefully, we can make some decisions about his future plac ement in the next few days once Surgery gives us the okay that he may be discharged soon. At this t blanche we will continue with Zosyn.
[2017-03-15] MEDS: cloNIDine HCl 0.1 MG TAB PO PRN ×2 (08:10→20:18)
[2017-03-15] MEDS: Sotalol HCl 80 MG TAB PO SCH ×2 (08:10→20:17)
[2017-03-15] MEDS: Aspirin 81 mg Enteric Coated Tablet PO SCH (08:11)
[2017-03-15] MEDS: Enoxaparin Sodium 40 MG/0.4 ML SYRINGE SC SCH (08:11)
[2017-03-15] MEDS: Clopidogrel Bisulfate 75 MG TAB PO SCH (08:11)
[2017-03-15] MEDS: Pregabalin 75 MG CAP PO SCH (08:12)
[2017-03-15] MEDS: Mag-Al 1200 mg/1200 mg/30 ML UDCUP PO PRN ×2 (13:43→20:18)
[2017-03-15] MEDS ORDERED: Albuterol Sulfate 1.25 MG/3 ML NEB NEB PRN (16:08)
[2017-03-15] MEDS: Insulin Regular 300 UNITS/3 ML VIAL SC PRN (18:21)
[2017-03-15] MEDS: Simvastatin 20 MG TAB PO SCH (20:18)
[2017-03-15] MEDS: Insulin Detemir 100 UNITS/ML 10 UNITS in Pre-Filled Syringe SC SCH (20:19)
[2017-03-16] MEDS: Piperacillin/Tazobactam 3.375 GM in Sodium Chloride 0.9% 100 ML IVPB SCH ×4 (01:18→19:56)
[2017-03-16 04:51] LABS: #Eosinphils 0.1 thou/uL (0.0-0.7); #Lymphocytes 1.2 thou/uL (1.20-3.40); #Monocytes 0.7 thou/uL (0.11-0.59); #Neutrophils 8.3 thou/uL (1.40-6.50); %Basophils 0.1 % (0.0-1.0); %Eosinophils 0.9 % (0.0-10.0); %Monocytes 6.7 % (0.0-10.0); Hematocrit 34.4 % (42.0-52.0); Mean Platelet Volume 9.2 fL (7.4-10.4); Red Blood Cell (RBC) Count 4.33 mill/uL (4.70-6.10); White Blood Cell (WBC) Count 10.3 thou/uL (4.8-10.8)
[2017-03-16 05:08] LABS: Anion Gap 10 mmol/L (10-20); BUN (Urea Nitrogen) 23 mg/dL (8.4-25.7); Calc. Creatinine Clearance 56 mL/min (70-130); Carbon Dioxide 24 mmol/L (23-31); Chloride 115 mmol/L (98-107); Estimated GFR-MDRD 70
[2017-03-16 05:09] LABS: Calcium 8.1 mg/dL (7.8-10.44)
--- NOTE | 2017-03-16 07:52 | PRG ---
DATE OF SERVICE: 03/16/2017 Mr. Lopez still complains of epigastric pain and discomfort. It is noted he is status post cholec ystectomy. He is currently on double dose pantoprazole, but still notes upper quadrant pain, a corey le bit more problematic. He denies any nausea, vomiting, diarrhea. PHYSICAL EXAMINATION: VITAL SIGNS: Temperature 97.4, blood pressure 177/99. LUNGS: His lungs are clear. HEART: Reveals no murmur. ABDOMEN: The abdomen is soft, there is some mild tenderness noted in the right upper quadrant area without evidence of rebound or guarding. Bowel sounds are present and active. LABORATORY: Hemoglobin 9.8, hematocrit 34.4, white blood count 10.3, sodium 145, potassium 4.1, chl oride 115, CO2 24, BUN 23, creatinine 1.03. IMPRESSION: 1. Status post amputation of left great and second toe. 2. Peripheral vascular disease. 3. Gangrene of left toe and noted amputation. 4. Epigastric abdominal pain. PLAN: 1. Will proceed with CT scan of the abdomen today. 2. The patient will have wound check today. Apparently he needs to be rescreened for rehab [facility]. Hopefully we will get this accomplished today. 3. Further care will be dictated by the status of his wound check.
[2017-03-16] MEDS: Pregabalin 75 MG CAP PO SCH (07:54)
[2017-03-16] MEDS: Aspirin 81 mg Enteric Coated Tablet PO SCH (07:55)
[2017-03-16] MEDS: Sotalol HCl 80 MG TAB PO SCH ×2 (07:55→19:56)
[2017-03-16] MEDS: Clopidogrel Bisulfate 75 MG TAB PO SCH (07:55)
[2017-03-16] MEDS: Enoxaparin Sodium 40 MG/0.4 ML SYRINGE SC SCH (07:56)
[2017-03-16] MEDS: HYDROcodone/Acetaminophen 5/325 mg Tablet PO PRN ×2 (10:34→19:58)
[2017-03-16] MEDS: Sodium Chloride 0.9% 1,000 ML IV SCH ×3 (10:35→20:05)
[2017-03-16] MEDS ORDERED: Lidocaine 4% Topical Sol 50 ML BOT TOP SCH (10:45)
--- NOTE | 2017-03-16 11:24 | CT ---
CT ABDOMEN AND PELVIS WITH CONTRAST: Comparison: 11-19-16 History: Epigastric abdominal pain with diarrhea and difficulty breathing. Technique: Multiple contiguous axial images were obtained in a CT of the abdomen and pelvis with con trast. Coronal reformats were performed. FINDINGS: The patient is status post cholecystectomy. The liver, kidneys, adrenal glands, spleen, and pancreas are unremarkable. No free air, free fluid, or stranding changes are seen in the abdomen or pelvis. There is scattered diverticula in the colon. The small bowel is unremarkable. Atherosclerotic calcif ications are seen in the aorta. No abdominal or pelvic lymphadenopathy are seen. There are degenerative changes in the spine. There appears to be a remote healing fracture of the ri ght parasymphyseal region of the pelvis. There is a moderate left and small right pleural effusion. Adjacent atelectasis is seen. IMPRESSION: 1. No evidence of acute intraabdominal/pelvic abnormality. 2. Diverticulosis. 3. Bilateral pleural effusions with adjacent atelectasis. POS: [facility]
[2017-03-16] MEDS: cloNIDine HCl 0.1 MG TAB PO PRN (11:47)
[2017-03-16] MEDS ORDERED: ISOVUE-370 76%-LOCM 1 ML ONE (14:08)
[2017-03-16] MEDS ORDERED: Heparin 1,000 UNITS/ML VIAL ONE (15:59)
[2017-03-16] MEDS: Insulin Regular 300 UNITS/3 ML VIAL SC PRN (16:40)
--- NOTE | 2017-03-16 16:46 | SPC ---
EXAM: LEFT UPPER EXTREMITY PICC LINE PLACEMENT WITH ULTRASOUND GUIDANCE 03/16/17 HISTORY: Infection. COMPARISON: None. EXPOSURE: 0.4 minutes. 3877 mGy*cm2. FINDINGS: Technically successful left upper extremity PICC line placement. Distal tip is in the SVC/right atri al junction. Trim length is 49 cm. Single lumen does flush and aspirate without difficulty. TECHNIQUE: Consent obtained for left upper extremity PICC line placement. The left arm was prepped and draped i n the sterile fashion. 1% lidocaine, buffered with sodium bicarbonate was used for local anesthesia. Under sonographic guidance, micropuncture needle was used to cannulate the brachial vein. A 0.018 g uide wire was advanced through the needle to the level of the superior vena cava. Under fluoroscopy, the wire was further advanced to the inferior vena cava to evaluate venous access. The wire was sub sequently pulled back to the level of the SVC/right atrial junction. The tract was dilated. A single lumen 5 English catheter was advanced over the wire. Wire was removed. Single lumen catheter was flu sh and aspirate without difficulty. Trim length is 49 cm. IMPRESSION: Technically successful left upper extremity PICC line placement with ultrasound guidance. POS: [facility]
[2017-03-16] MEDS ORDERED: Furosemide 20 MG/2 ML VIAL SLOW IVP SCH (17:30)
[2017-03-16] MEDS ORDERED: Bacitracin Zinc 1 Packet TOP SCH (17:45)
[2017-03-16] MEDS: Insulin Detemir 100 UNITS/ML 10 UNITS in Pre-Filled Syringe SC SCH (19:56)
[2017-03-16] MEDS: Simvastatin 20 MG TAB PO SCH (19:56)
[2017-03-17] MEDS: Piperacillin/Tazobactam 3.375 GM in Sodium Chloride 0.9% 100 ML IVPB SCH ×3 (01:06→14:53)
[2017-03-17] MEDS: Sodium Chloride 0.9% 1,000 ML IV SCH (03:08)
[2017-03-17] MEDS: HYDROcodone/Acetaminophen 5/325 mg Tablet PO PRN ×3 (04:52→14:49)
[2017-03-17 05:08] LABS: #Basophils 0.1 thou/uL (0.0-0.2); #Eosinphils 0.2 thou/uL (0.0-0.7); #Lymphocytes 1.4 thou/uL (1.20-3.40); #Monocytes 0.7 thou/uL (0.11-0.59); #Neutrophils 9.3 thou/uL (1.40-6.50); %Basophils 0.6 % (0.0-1.0); %Eosinophils 1.7 % (0.0-10.0); %Lymphocytes 11.9 % (21.0-51.0); %Monocytes 5.8 % (0.0-10.0); Hematocrit 33.3 % (42.0-52.0); Mean Platelet Volume 9.2 fL (7.4-10.4); Red Blood Cell (RBC) Count 4.22 mill/uL (4.70-6.10); White Blood Cell (WBC) Count 11.6 thou/uL (4.8-10.8)
[2017-03-17 05:21] LABS: Anion Gap 11 mmol/L (10-20); BUN (Urea Nitrogen) 23 mg/dL (8.4-25.7); Calc. Creatinine Clearance 60 mL/min (70-130); Calcium 8.3 mg/dL (7.8-10.44); Carbon Dioxide 25 mmol/L (23-31); Chloride 113 mmol/L (98-107); Estimated GFR-MDRD 76
[2017-03-17] MEDS: Sotalol HCl 80 MG TAB PO SCH (09:02)
[2017-03-17] MEDS: Pregabalin 75 MG CAP PO SCH (09:04)
[2017-03-17 13:38] VITALS: BP 175/94; TEMP 97.4
[2017-03-17] MEDS: Aspirin 81 mg Enteric Coated Tablet PO SCH (14:53)
[2017-03-17] MEDS: Clopidogrel Bisulfate 75 MG TAB PO SCH (14:54)
[2017-03-17] MEDS: Enoxaparin Sodium 40 MG/0.4 ML SYRINGE SC SCH (14:54)
--- NOTE | 2017-03-18 06:12 | DIS ---
DATE OF ADMISSION: 03/09/2017 DATE OF DISCHARGE: 03/17/2017 DISCHARGE DIAGNOSES: 1. Gangrene of left great and second toe. 2. Peripheral vascular disease. 3. History of chronic obstructive pulmonary disease. 4. History of atherosclerotic coronary artery disease. 5. History of type 2 diabetes mellitus, insulin-dependent. 6. History of atrial fibrillation. ADMITTING PHYSICIAN: Dr. Clarence Montenegro. CONSULTING PHYSICIANS: Dr. Magaña, Dr. Jose Montenegro, and Dr. Davis. HOSPITAL SUMMARY: The patient is a 81-year-old male, who presented to the emergency room complainin g of blackness to his left great toe. He was seen and evaluated in the ER and found to have gangren ous left toe changes. Surgical consult was obtained from Dr. Magaña, who recommended surgical ampu tation and indicated procedures. This was done once the patient was stabilized with IV fluids and I V antibiotics. Further consultation obtained from Dr. Jose Montenegro to help improve circulation to his right leg, p revious history of occlusive vascular disease of his left lower extremity. Dr. Montenegro took him to [facility] procedure room and underwent procedures on 03/10/2017 with angioplasties to improve circulation in the left leg. This did seem to improve his left leg blood flow with much better warmth noted as we ll as capillary filling. The patient was placed on IV Zosyn per recommendations of Infectious Disea se. The patient's hospital course was one of slow, steady improvement. He did develop some epigast jonathan abdominal pain. He eventually underwent CT scan, which was unremarkable. Throughout his hospitalization, he remained afebrile. His wound care was managed by Dr. Magaña. A fter consultation with Dr. Magaña, myself, and Dr. Davis, it was determined the patient would be a candidate for rehabilitation, this occurred on 03/17/2017, he was able to discharged to rehabilitati on. DISCHARGE MEDICATIONS: Albuterol nebs, bacitracin ointment, Plavix 75 mg daily, Lasix 40 mg daily, hydrocodone 5/325 as needed for pain, sliding scale insulin, isosorbide 30 mg daily, Lyrica 75 mg da armando, simvastatin 20 mg daily, sotalol 80 mg daily, clonidine 0.1 mg as needed for hypertension. Add itionally, he was continued on levocetirizine 5 mg daily, albuterol nebs, ipratropium bromide nasal spray, multivitamin, nicotine patch, Forteo as well as daily insulin. He also had a PICC line in [facility], and he was continued on IV Rocephin 1 gram daily as well as p.o. Flagyl 500 mg p.o. t.i.d. The patient will be seen in followup with me on a p.r.n. basis.
== END 2017-03-17 15:56 | DRG 253 ==
LOC: ERS 11:55 → T4-A 13:33
PROVIDERS: ADMIT Family Medicine; ATTEND Family Medicine
PROC: 0Y6Q0Z0 Detachment at Left 1st Toe, Complete, Open Approach (ICD-10-PCS; principal; 2017-03-09)
PROC: 0Y6S0Z0 Detachment at Left 2nd Toe, Complete, Open Approach (ICD-10-PCS; 2017-03-09)
PROC: 0JDR0ZZ Extraction of Left Foot Subcutaneous Tissue and Fascia, Open Approach (ICD-10-PCS; 2017-03-09)
PROC: 047N3Z1 Dilation of Left Popliteal Artery using Drug-Coated Balloon, Percutaneous Approach (ICD-10-PCS; 2017-03-10)
PROC: 047L3Z1 Dilation of Left Femoral Artery using Drug-Coated Balloon, Percutaneous Approach (ICD-10-PCS; 2017-03-10)
PROC: 047U3ZZ Dilation of Left Peroneal Artery, Percutaneous Approach (ICD-10-PCS; 2017-03-10)
PROC: B41G1ZZ Fluoroscopy of Left Lower Extremity Arteries using Low Osmolar Contrast (ICD-10-PCS; 2017-03-10)
PROC: B4101ZZ Fluoroscopy of Abdominal Aorta using Low Osmolar Contrast (ICD-10-PCS; 2017-03-10)
PROC: 0HBNXZZ Excision of Left Foot Skin, External Approach (ICD-10-PCS; 2017-03-14)
PROC: 02HV33Z Insertion of Infusion Device into Superior Vena Cava, Percutaneous Approach (ICD-10-PCS; 2017-03-16)
PROC: B548ZZA Ultrasonography of Superior Vena Cava, Guidance (ICD-10-PCS; 2017-03-16)
DX: I70.262 Atherosclerosis of native arteries of extremities with gangrene, left leg (principal); L03.116 Cellulitis of left lower limb; E11.52 Type 2 diabetes mellitus with diabetic peripheral angiopathy with gangrene; L02.612 Cutaneous abscess of left foot; Z99.81 Dependence on supplemental oxygen; J44.9 Chronic obstructive pulmonary disease, unspecified; I25.10 Atherosclerotic heart disease of native coronary artery without angina pectoris; Z79.4 Long term (current) use of insulin; R10.13 Epigastric pain; M10.9 Gout, unspecified; M81.8 Other osteoporosis without current pathological fracture; Z87.81 Personal history of (healed) traumatic fracture; F17.210 Nicotine dependence, cigarettes, uncomplicated; I10 Essential (primary) hypertension; Z95.820 Peripheral vascular angioplasty status with implants and grafts; S90.821A Blister (nonthermal), right foot, initial encounter; I48.0 Paroxysmal atrial fibrillation; F32.9 Major depressive disorder, single episode, unspecified; Z95.5 Presence of coronary angioplasty implant and graft; I25.2 Old myocardial infarction; Z79.01 Long term (current) use of anticoagulants
CPT/HCPCS: 36415; 36416; 36569; 37224; 37228; 74177; 76942; 80048; 80053; 82550; 85025; 85347; 85652; 86140; 87040; 87070; 87076; 87077; 87205; 88305; 88311; 93005; 93010; 94640; 96365; 96375; 99152; 99153; A4216; C1725; C1751; C1760; C1769; C1887; G8978-GP-CK; G8979-GP-CI; G8987-GO-CK; G8988-GO-CI; J1644; J1650; J1815; J1940; J2001; J2270; J2543; J2704; J3010; J3370; J7050; S0020

== ENCOUNTER 2017-03-17 21:38 | Emergency (ER) | payer MEDICARE, BC ==
--- NOTE | 2017-03-17 22:37 | RAD ---
PORTABLE AP CHEST X-RAY: 03/17/17 HISTORY: Shortness of breath and low oxygen saturation. COMPARISON: 03/17/17 at 1847 hours. Left sided PICC line remains in place. The cardiac silhouette is magnified by projection but stable in size and does appear mildly enlarged. There is increased perihilar interstitial opacities bilater ally, asymmetrically greater on the right with associated alveolar opacities. Patient has had increa sed interstitial densities on prior chest x-rays dating back to 2013, but there is now greater incre ased interstitial and alveolar opacities in the right perihilar location which may be related to dev elopment of a more acute infectious process. No other interval change. IMPRESSION: Chronic interstitial lung changes with greater interstitial and alveolar opacities in the right rah r and perihilar location which may be related to superimposed infectious process and chronic inters titial lung changes. Followup to resolution is recommended. POS: [facility]
[2017-03-17] MEDS ORDERED: Azithromycin 500 MG VIAL ONE (23:20)
[2017-03-18 08:49] LABS: #Basophils 0.1 thou/uL (0.0-0.2); #Eosinphils 0.1 thou/uL (0.0-0.7); #Lymphocytes 1.4 thou/uL (1.20-3.40); #Monocytes 0.6 thou/uL (0.11-0.59); #Neutrophils 9.8 thou/uL (1.40-6.50); %Basophils 0.6 % (0.0-1.0); %Eosinophils 0.6 % (0.0-10.0); %Monocytes 4.9 % (0.0-10.0); Hematocrit 33.1 % (42.0-52.0); Mean Platelet Volume 9.7 fL (7.4-10.4); Red Blood Cell (RBC) Count 4.18 mill/uL (4.70-6.10)
[2017-03-18 08:54] LABS: Anion Gap 15 mmol/L (10-20); BUN (Urea Nitrogen) 20 mg/dL (8.4-25.7); Calc. Creatinine Clearance 0 mL/min (70-130); Calcium 8.2 mg/dL (7.8-10.44); Carbon Dioxide 24 mmol/L (23-31); Chloride 111 mmol/L (98-107); Estimated GFR-MDRD 80
[2017-03-18 09:17] LABS: Band 4 % (5-11); Neutrophil 77 % (42-75); Polychromasia MODERATE = 3-4 cells (100X) (0-2/hpf); Reactive Lymphocytes 1 % (0-10)
== END 2017-03-18 00:25 ==
LOC: ERS 21:38
DX: J18.9 Pneumonia, unspecified organism (principal); E11.9 Type 2 diabetes mellitus without complications; I25.2 Old myocardial infarction; I11.0 Hypertensive heart disease with heart failure; I50.9 Heart failure, unspecified; I48.91 Unspecified atrial fibrillation; I25.10 Atherosclerotic heart disease of native coronary artery without angina pectoris; J44.9 Chronic obstructive pulmonary disease, unspecified; F17.210 Nicotine dependence, cigarettes, uncomplicated; Z79.82 Long term (current) use of aspirin; Z79.4 Long term (current) use of insulin; Z79.51 Long term (current) use of inhaled steroids; Z79.899 Other long term (current) drug therapy
CPT/HCPCS: 71010; 93005; 94760; 96365; J0456